=== PATIENT | male | born 1995 | race Two or more races ===

== ENCOUNTER 2018-10-22 02:03 | Emergency (ER) | payer MEDICAID ==
[~2018-10-22] VITALS: Ht 185.4 cm; Wt 108.9 kg
[2018-10-22 04:53] VITALS: BP 123/76
== END 2018-10-22 04:53 | disposition home or self-care (01) ==
LOC: ED 02:03
DX: R10.13 Epigastric pain (principal)
CPT/HCPCS: J1885

== ENCOUNTER 2018-10-24 12:47 | Emergency (ER) | payer MEDICAID ==
[~2018-10-24] VITALS: Ht 185.4 cm; Wt 111.1 kg
[2018-10-24 13:01] VITALS: Ht 185.4 cm; Wt 111.1 kg
[2018-10-24 13:18] LABS: BASOPHIL % 0.4 % (0-2); PLATELET COUNT 338 x10^3mcL (130-400); RED CELL DISTRIBUTION WIDTH 12.7 % (11.5-14.5)
[2018-10-24 13:29] LABS: CALCIUM 8.4 mg/dL (8.5-10.1); CARBON DIOXIDE 28.1 mmol/L (21-32); CHLORIDE SERUM 105 mmol/L (98-107); CREATININE SERUM 0.9 mg/dL (0.7-1.3); GFR1 > 60 mL/min; GLUCOSE SERUM 87 mg/dL (74-106); POTASSIUM SERUM 4.1 mmol/L (3.5-5.1); SODIUM SERUM 139 mmol/L (136-145)
[2018-10-24 13:33] LABS: ALBUMIN 3.7 g/dL (3.4-5.0); ALKALINE PHOSPHATASE 94 U/L (46-116); ALT/SGPT 28 U/L (16-63); AST/SGOT 10 U/L (15-37); BILIRUBIN TOTAL 0.33 mg/dL (0.20-1.00); LIPASE 160 IU/L (73-393); TOTAL PROTEIN, SERUM 7.7 g/dL (6.4-8.2)
[2018-10-24 16:17] VITALS: BP 114/57
== END 2018-10-24 16:17 | disposition home or self-care (01) ==
LOC: ED 12:47
PROVIDERS: Emergency Medicine
DX: R10.84 Generalized abdominal pain (principal); F42.9 Obsessive-compulsive disorder, unspecified
CPT/HCPCS: J2270; J2405; J7030